=== PATIENT | female | born 1975 | race Caucasian/White ===

== ENCOUNTER → 2021-03-17 | Outpatient (CLI) | payer OTHER ==
[~2021-03-17] MED LIST: BENTYL 20MG TAB20 MG PO; NORCO 5-325 TA1 EACH PO; PHENERGAN 25 MG25 M1 PO
== END ==
LOC: KOH-I 14:33
DX: M54.50 Low back pain, unspecified (principal); M47.816 Spondylosis without myelopathy or radiculopathy, lumbar region
CPT/HCPCS: 72100

== ENCOUNTER → 2021-09-12 | Outpatient (CLI) | payer OTHER | LOC: KOH-I 10:41 | DX: M17.0 Bilateral primary osteoarthritis of knee (principal); Z79.899 Other long term (current) drug therapy | CPT/HCPCS: 73562 ==

== ENCOUNTER → 2021-12-23 | Outpatient (CLI) | payer OTHER | LOC: KOH-I 16:11 | DX: R07.89 Other chest pain (principal) | CPT/HCPCS: 71046 ==

== ENCOUNTER → 2022-01-07 | Outpatient (CLI) | payer OTHER | LOC: HEART 5 07:26 | DX: R00.0 Tachycardia, unspecified (principal) ==